=== PATIENT | female | born 1970 | race African-American/Black ===

== ENCOUNTER → 2021-07-01 | Outpatient (CLI) | payer OTHER ==
[~2021-07-01] MED LIST: ALDACTONE50 MG PO; GLUCOPHAGE500 MG PO; NORCO 5-325 TA1 EACH PO
== END ==
LOC: CAT 12:43
PROVIDERS: ATTEND Family Medicine
DX: Z13.6 Encounter for screening for cardiovascular disorders (principal); I25.10 Atherosclerotic heart disease of native coronary artery without angina pectoris; E78.00 Pure hypercholesterolemia, unspecified